=== PATIENT | female | born 2000 | race African-American/Black ===

== ENCOUNTER 2022-09-04 16:34 | Inpatient (IN) ==
[2022-09-04 17:24] LABS: ABS Basophils 0.1 10^3/ul (0-0.2); ABS Lymphocytes 2.2 10^3/ul (1.0-4.8); ABS Monocytes 0.6 10^3/ul (0-0.8); ABS Neutrophils 5.4 10^3/ul (1.5-7.7); Eosinophil % 0.4 %; Hematocrit 36 % (35-47); Hemoglobin 11.7 g/dL (12.0-16.0); Lymphocyte % 26.4 %; Mean Corpuscular HGB Conc 32 g/dL (31-36); Mean Corpuscular Hemoglobin 28 pg (27-31); Mean Corpuscular Volume 86 fL (80-97); Mean Platelet Volume 8.9 fL (7.4-10.4); Platelet Count 177 10^3/uL (150-450); Red Cell Distribution Width 15 % (10-15); White Blood Count 8.2 10^3/uL (3.5-10.8)
[2022-09-04 17:29] LABS: Urine Appearance Clear; Urine Bilirubin 1+ (Small) (Negative); Urine Blood 3+ (Large) (Negative); Urine Color Yellow; Urine Glucose Negative (Negative); Urine Ketones Negative (Negative); Urine Nitrite Negative (Negative); Urine Protein 1+ (30 mg/dL) (Negative); Urine Urobilinogen 1.0 (Negative) (Negative)
[2022-09-04 17:47] LABS: Urine Bacteria 1+ (Absent); Urine Red Blood Cell Trace(0-2/hpf) (Absent); Urine Specific Gravity 1.027 (1.002-1.030); Urine Squamous Epithelial Cell Present (Absent); Urine White Blood Cell Trace(0-5/hpf) (Absent)
[2022-09-04 17:50] LABS: Urine Benzodiazepine Screen None Detected (None Detect); Urine Cannabinoids Screen Presumptive Positive (None Detect); Urine Opiates Screen None Detected (None Detect)
[2022-09-04 18:16] LABS: ALT 18 U/L (7-52); AST 21 U/L (13-39); Acetaminophen < 15 mcg/mL; Albumin 4.2 g/dL (3.2-5.2); Albumin/Globulin Ratio 1.8 (1-3); Alcohol, S < 13 mg/dL (<13); Alkaline Phosphatase 48 U/L (35-149); Anion Gap 8 mmol/L (2-11); Blood Urea Nitrogen 14 mg/dL (6-24); CO2 Carbon Dioxide 25 mmol/L (22-32); Calcium 9.3 mg/dL (8.6-10.3); Chloride 106 mmol/L (101-111); Globulin 2.4 g/dL (2-4); Glucose 81 mg/dL (70-100); Potassium 3.8 mmol/L (3.5-5.0); Salicylate < 2.50 mg/dL (<30); Sodium 139 mmol/L (135-145); Total Protein 6.6 g/dL (6.4-8.9)
[2022-09-04 18:21] LABS: HCG Pregnancy < 0.60 mIU/mL
[2022-09-04 18:30] LABS: TSH Ultra Thyroid Stim Horm 0.58 mcIU/mL (0.34-5.60)
[2022-09-04 21:24] VITALS: BP 98/68
[2022-09-04] MEDS ORDERED: chlorproMAZINE TAB 50 MG Q8H PRN AGITATION PO (22:54)
[2022-09-04] MEDS ORDERED: Al Hydrox/Mg Hydrox/Simet LIQ 30 ML UDC PO PRN (22:54)
[2022-09-04] MEDS ORDERED: DIPHENHYDRAMINE 50 MG PO (22:55)
[2022-09-04] MEDS ORDERED: Nicotine GUM 2MG FRUIT FLAVOR PO PRN (23:00)
[2022-09-05] MEDS: Nicotine PATCH 14 MG/24 HR PATCH TRANSDERM SCH (09:03)
[2022-09-05] MEDS: Vitamin THERAPEUTIC TAB PO SCH (09:03)
[2022-09-05] MEDS ORDERED: chlorproMAZINE 25 MG/ML 2 ML (50 MG) IM ONE (17:50)
[2022-09-05] MEDS ORDERED: chlorproMAZINE 25 MG/ML 2 ML (50 MG) ONE (17:54)
[2022-09-06] MEDS: Vitamin THERAPEUTIC TAB PO SCH (10:20)
[2022-09-06] MEDS: Nicotine PATCH 14 MG/24 HR PATCH TRANSDERM SCH (10:21)
== END 2022-09-06 17:36 | disposition home or self-care (01) | DRG 753 ==
LOC: ED 16:34 → BSU 20:41
PROVIDERS: ADMIT Psychiatry & Neurology Addiction Psychiatry; ATTEND Psychiatry & Neurology Addiction Psychiatry